=== PATIENT | female | born 1995 | race African-American/Black ===

== ENCOUNTER 2017-07-18 12:09 | Emergency (ER) | payer MEDICAID ==
[~2017-07-18] VITALS: Ht 182.9 cm; Wt 61.2 kg
[2017-07-18 12:17] VITALS: BP 134/70
[2017-07-18 13:45] LABS: BASOPHILS % (AUTO) 0.3 % (0.0-2.0); EOSINOPHILS % (AUTO) 1.6 % (0.0-6.0); HEMATOCRIT 41 % (33-45); HEMOGLOBIN 13.5 g/dL (11.5-14.8); LYMPHOCYTES # (AUTO) 1.3 /CMM (0.8-4.8); LYMPHOCYTES % (AUTO) 20.3 % (20.0-44.0); MEAN CORPUSCULAR HGB CONC 33 g/dl (31.0-36.0); MEAN CORPUSCULAR VOLUME 91 fL (82-100); MONOCYTES # (AUTO) 0.6 /CMM (0.1-1.30); MONOCYTES % (AUTO) 8.9 % (2.0-12.0); NEUTROPHILS # (AUTO) 4.3 /CMM (1.8-8.9); NEUTROPHILS % (AUTO) 68.9 % (43.0-81.0); PLATELET COUNT (AUTO) 262 /CMM (150-450); RDW COEFFICIENT OF VARIATION 13.4 (11.5-15.0); RED BLOOD CELL COUNT(AUTO) 4.47 MIL/uL (4.0-5.2); WHITE BLOOD COUNT (AUTO) 6.3 K/uL (4.3-11.0)
[2017-07-18 13:56] LABS: CALCIUM, SERUM 9.3 mg/dL (8.5-10.1); CREATININE 0.8 mg/dL (0.6-1.3); POTASSIUM 3.9 mmol/L (3.5-5.1)
[2017-07-18 14:00] LABS: CALCIUM, SERUM 9.7 mg/dL (8.5-10.1); CARBON DIOXIDE 25 mmol/L (21-32); CHLORIDE 105 mmol/L (98-107); CREATININE 0.8 mg/dL (0.6-1.3); GLUCOSE 86 mg/dL (74-106); POTASSIUM 3.9 mmol/L (3.5-5.1); SODIUM SERUM 140 mmol/L (136-145); UREA NITROGEN, BLOOD 11 mg/dL (7-18)
[2017-07-18 14:03] LABS: ALBUMIN 4.3 g/dL (3.4-5.0); BILIRUBIN,TOTAL 0.4 mg/dL (0.2-1.0); TOTAL PROTEIN, SERUM 7.8 g/dL (6.4-8.2)
[2017-07-18 14:04] LABS: ALANINE AMINOTRANSFERASE 16 U/L (12-78); ALBUMIN 4.3 g/dL (3.4-5.0); ALKALINE PHOSPHATASE 41 U/L (46-116); ASPARTATE AMINOTRANSFERASE 14 U/L (15-37); BILIRUBIN,DIRECT 0.1 mg/dL (0.0-0.2); BILIRUBIN,TOTAL 0.4 mg/dL (0.2-1.0)
[2017-07-18 14:06] LABS: ACETAMINOPHEN < 2 ug/ml (10-30); SALICYLATE < 0.2 mg/dL (2.8-20.0)
[2017-07-18 14:29] LABS: INR 1.02 (0.87-1.13)
== END 2017-07-18 14:42 | disposition home or self-care (01) ==
LOC: ER 12:14
DX: R06.02 Shortness of breath (principal)
CPT/HCPCS: 36415; 71045-TC; 80048-TC; 80053-TC; 80076-TC; 80305; 84703-TC; 85025-TC; 85610-TC; A4606; G0480; Z7610

== ENCOUNTER 2017-07-24 11:03 | Emergency (ER) | payer MEDICAID ==
[~2017-07-24] VITALS: Ht 182.9 cm; Wt 59.0 kg
[2017-07-24 11:20] VITALS: BP 118/83
--- NOTE | 2017-07-24 11:25 | NUR ---
pt to ed room 10. feeling, anxious, and sob, with mid sternal discomfort during inspiration. a/a/o. ambulatory. side rails up. hob elevated. connected to monitor. awaiting for ed eval.
[2017-07-24] MEDS ORDERED: MAG HYDROX/AL HYDROX/SIMETH 30 ML UDC PO ONE (13:30)
[2017-07-24] MEDS ORDERED: FAMOTIDINE (20 MG) 20 MG TABLET PO ONE (13:30)
[2017-07-24] MEDS ORDERED: IV NS 0.9% 250 ML IV ONE (13:35)
[2017-07-24] MEDS ORDERED: IOHEXOL-350 100 ML VIAL IV ONE (13:35)
[2017-07-24] MEDS ORDERED: MAG HYDROX/AL HYDROX/SIMETH 30 ML UDC ONE (13:37)
[2017-07-24] MEDS ORDERED: FAMOTIDINE (20 MG) 20 MG TABLET ONE (13:37)
--- NOTE | 2017-07-24 13:40 | NUR ---
PT REFUSED PO MEDS
--- NOTE | 2017-07-24 13:49 | NUR ---
PATIENT REFUSED MEDS, LABS INCLUDING URINE TESTS, CT SCAN.
--- NOTE | 2017-07-24 14:16 | NUR ---
Patient does not wish to proceed with medical care recommended by RYLEY KC NP. Patient given information related to possible complications, up to and including , which could occur as a result of leaving the hospital at this time. Patient verbalizes understanding of risks involved due to leaving against medical advice. Patient has signed AMA form.
== END 2017-07-24 14:18 | disposition left against medical advice (07) ==
LOC: ER 11:05
DX: R07.89 Other chest pain (principal); R06.02 Shortness of breath
CPT/HCPCS: 84703; 93005; 99285; A4606; J7050; Z7610; Q9967